=== PATIENT | female | born 1955 | race Caucasian/White ===

== ENCOUNTER → 2016-06-30 | Outpatient (CLI) | payer BC ==
--- NOTE | 2016-06-30 11:18 | RAD ---
PROCEDURE MRI cervical spine without contrast. HISTORY Neck pain. Pain after lifting a patient 4 months ago. History of cervical fusion. TECHNIQUE Sagittal T1, sagittal T2, sagittal STIR, axial T2, and axial T2 gradient sequences are provided. COMPARISON December 09, 2009. FINDINGS There is 2 millimeters of anterolisthesis at C2-C3 and C3-C4. There is 2-3 millimeters of retrolisthesis at C4-C5 and C5-C6. C6 and C7 are fused resulting in hardware artifact. There is no worrisome marrow lesion. There is no marrow edema. There is no cord signal abnormality. Cervicomedullary junction is within normal limits. Degenerative findings by individual level are as follows: C2-C3: Minimal uncinate process spurring is noted and there is moderate left and minimal right foraminal narrowing. There is moderate left foraminal narrowing. C3-C4: Facet hypertrophy is moderate on the left. There is moderate left foraminal narrowing. C4-C5: Disc osteophyte complex and uncinate process spurring are noted. Midline AP diameter of the thecal sac is narrowed to 8-9 millimeters. There is slight cord flattening. There is mild to moderate left and mild right foraminal narrowing. C5-C6: There is a disc osteophyte complex and uncinate process spurring. There is narrowing of the interspace. There is buckling of ligamentum flavum. Midline AP diameter of the thecal sac is narrowed to 7 millimeters. There is mild cord flattening but no cord hyperintensity. There is at least mild bilateral foraminal narrowing. C6-C7: There is hardware artifact at this level. There is no definite canal or foraminal compromise. C7-T1: There is uncinate process spurring and facet hypertrophy noted with high-grade left and mild right foraminal narrowing. Degenerative findings have increased from prior study, most notably at C5-C6. IMPRESSION 1. Degenerative changes in the cervical spine, increased from 2010 with canal stenosis most notable at C5-C6. Foraminal narrowing is greatest on the left at C7-T1. 2. Prior anterior fusion of C6 and C7. Electronically signed by: Quinn Gamez MD (Jun 30, 2016 11:16:58)
--- NOTE | 2016-06-30 12:20 | RAD ---
PROCEDURE MR of the left shoulder HISTORY Left shoulder pain for 4 months. History of rotator cuff repair. TECHNIQUE Standard noncontrast images are obtained. FINDINGS The acromioclavicular joint is mildly degenerative. Full-thickness tear of the supraspinatus tendon measures about 1 centimeter AP diameter. Retraction to about the level of the superior labrum. The tear is centered at the critical zone. Partial tearing of the remaining supraspinatus and infra spinatus tendons. Partial tearing of the subscapularis tendon. Trace fluid in the subdeltoid bursa. Mild to moderate atrophy of the supraspinatus and infraspinatus muscles with volume loss and fatty infiltration. More severe fatty infiltration at the teres minor muscle. This could indicate chronic denervation such as from quadrilateral space syndrome. No significant glenohumeral joint effusion. No evidence of a labrum tear. Biceps tendon not visualized. No evidence of an acute fracture. No aggressive bone destruction. No acute soft tissue injury. Screw identified at the humeral head compatible with prior surgery. IMPRESSION Small full-thickness retracted tear of the supraspinatus tendon. Partial tearing of the remaining supraspinatus and infraspinatus tendon, and subscapularis tendon. Electronically signed by: Jay Bowling MD (Jun 30, 2016 12:19:31)
== END | disposition home or self-care (01) ==
LOC: MRI 08:13
PROVIDERS: ATTEND Internal Medicine Cardiovascular Disease
DX: M54.2 Cervicalgia (principal); M25.512 Pain in left shoulder
CPT/HCPCS: 72141; 73221

== ENCOUNTER → 2016-08-09 | Outpatient (CLI) | payer OTHER ==
[~2016-08-09] MED LIST: ATOR10TA PO; ESTR0.3T PO; EZET10TA3 PO; IOHEXOL 180 MG/ML 10 ML VIAL. ONE; MULT-208 PO; OMEG300C PO; methylPREDNISolone ACETATE 40 MG/ML VIAL. ONE; methylPREDNISolone ACETATE 80 MG/ML VIAL. ONE
--- NOTE | 2016-08-10 04:31 | CONS ---
DATE OF CONSULTATION: 08/09/2016 CHIEF COMPLAINT: Neck and left upper extremity pain. 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 The patient rates the pain as a 6-7 on a scale 10 currently, it can be as high as 10 at night and after a long day. The patient reports it is radiating with constant aching pain, sharp and shooting, but worse with leaning forward with her neck. Pins and needles and electric sensation as well as numbness in the left hand has noted. The patient did have an MRI scan of the cervical spine showing degenerative changes with canal stenosis most noted on the C5-C6 and foraminal narrowing, greatest on the left at C7-T1 with a prior anterior fusion at C6-C7 and high-grade left and mild right foraminal narrowing at C7-T1. The patient reports it wakes her from sleep at least 3-4 times at night, does not affect her bowel or bladder control or her ability to walk, but it is becoming difficult with daily activities, especially when just getting dressed using her left arm raising above her head as it spreading on ____ and is becoming more noticeable with driving and lifting items or working daily activities. The patient rates her disability rate from 0-10, 10 being the worst, 1 with family and home responsibilities and self-care, 4 with occupation and 2 with life support activities. The patient has been taking [id number] ibuprofen as well as Tylenol without significant decrease in the pain. The patient reports no loss of motor function, but significant fatigability with left upper extremity when the pain is more noticeable. PAST MEDICAL HISTORY: Significant for previous seasonal allergies. PREVIOUS SURGERY: Include hysterectomy in 1995, C6-C7 anterior fusion in 2006, left rotator cuff repair in 2010, and right rotator cuff repair in 2012. CURRENT MEDICATIONS: Include Premarin, Lipitor, multivitamins, Cedia and fish oil. ALLERGIES: INCLUDE PENICILLIN, IODINE, DARVON, CRESTOR, AND LORTAB, ALL OF WHICH CAUSE A RASH. FAMILY HISTORY: Significant for coronary artery disease. SOCIAL HISTORY: The patient does not smoke, drinks about 2-3 alcoholic drinks a year on average, is single, lives locally and works as a registered nurse. REVIEW OF SYSTEMS: The patient's review of systems is positive for those items mentioned in history of present illness. All systems were reviewed and otherwise negative. It is complete, full and well documented on the patient's chart. PHYSICAL EXAMINATION: VITAL SIGNS: Today, blood pressure is 128/81, pulse 59, respirations 18, temperature 97.8 degrees Fahrenheit, height is 5 feet 5 inches, and weight 167 pounds. GENERAL: The patient is awake, alert, oriented, appropriate, very pleasant demeanor. HEENT: Head shows normocephalic and atraumatic. Extraocular movements are intact and symmetrical. Oral cavity shows mucous membranes are moist and pink. Dentition is intact. NECK: Shows anterior throat supple without palpable lymphadenopathy noted. Swallow reflex is symmetrical. Previously well-healed surgical scar is noted on the right of the anterior throat. BACK: Posterior cervical musculature shows some moderate tenderness, but is symmetrical with the appearance and on inspection, tenderness with palpation in the middle and lower distribution to paraspinous musculature, more on the left than the right, but symmetrical in appearance. No atrophy or hypertrophy. No trigger points or radiation of pain ____ into the superior medial and lateral trapezius on the left side, is diffusely tender, but without trigger points, right side is nontender. Remainder of patient's back shows normal appearing thoracic kyphosis and lumbar lordotic curvature. CHEST: Shows normal on inspection. Breath sounds are clear to auscultation bilaterally. HEART: Shows S1 and S2 clear. No murmurs are auscultated. ABDOMEN: Soft, nontender, and nondistended. No palpable organomegaly. No rebound or guarding demonstrated. The patient's upper extremities show deep tendon reflexes at 2+ in the biceps and triceps tendons. Motor exam is strong with build technician strength rated at 5/5 as is biceps and triceps flexion and are symmetrical. Peripheral pulses are 2+ in radial distribution. No peripheral edema is noted. No clubbing, no cyanosis. Upper extremities are warm and dry to touch, equal in color and appearance. Shoulder shrug is strong and intact with some minor pain reported in the left shoulder with resistance, but no loss of strength on resistance. This is true with abduction of the shoulder to 90 degrees with resistance as well. IMPRESSION: 1. This is a 60-year-old female with approximate 5-month history of increasing pain in the base of the neck, left upper extremity after injury at work. 2. MRI scan as noted. PLAN: Options were discussed with the patient including conservative medical management, physical therapy, and interventional techniques. She would like to pursue interventional techniques. We discussed a cervical epidural steroid injection using description as well as anatomical models to describe the procedure. Risks were then discussed including, but not limited to bleeding, infection, possibility of epidural hematoma, subsequent neurologic compromise, dural puncture, headaches, spinal cord and/or nerve damage, side effects of steroid medication and poor results regarding pain control. The patient understands and wishes to proceed. The patient will return to clinic in approximately 2 weeks for followup, was counseled on return appointment, activity level and side effects to be aware of. DIAGNOSIS: Cervical radiculopathy with cervical degenerative disk disease. PROCEDURE: Cervical epidural steroid injection in translaminar approach at the C7-T1 level using the fluoroscopic guidance under sterile prep and drape using local anesthetic. MEDICATIONS INJECTED: Depo-Medrol 120 mg plus 5 mL with preservative-free normal saline. CONDITION: Stable at discharge. The patient tolerated the procedure well, had no complications. DAISY OLIVAS MD DR: JOCY/mercedes JOB#: [id number] / [id number]
== END | disposition home or self-care (01) ==
LOC: PNCL 09:04
PROVIDERS: ATTEND Anesthesiology
DX: M50.13 Cervical disc disorder with radiculopathy, cervicothoracic region (principal); Z72.89 Other problems related to lifestyle
CPT/HCPCS: 62321; J1030; J1040

== ENCOUNTER → 2016-08-23 | Outpatient (CLI) | payer OTHER ==
--- NOTE | 2016-08-24 00:22 | PAIN ---
DATE OF SERVICE: 08/23/2016 DIAGNOSES: Cervical radiculopathy with cervical degenerative disk disease. HISTORY OF PRESENT ILLNESS: The patient is a 61-year-old female, who returns for followup status post cervical epidural steroid injection x 1 on 08/09/2016. The patient reports she did very well with about 25% improvement overall, but pain is still returning now over the past week or so to the base of the neck and left shoulder and upper extremity as it had been previously. The patient reports some hand and arm numbness and tingling as well, worse when she is at work. 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 The patient reports it as a 5 to 6 on a scale of 10 today. Reports no new motor or sensory deficits, but still significant pain in the neck and left upper extremity. The patient reports no new motor or sensory deficits. No new changes. PHYSICAL EXAMINATION: VITAL SIGNS: The patient's blood pressure is 114/75, pulse 67, respirations 18, temperature 97.9 degrees Fahrenheit. Weight is 164 pounds. GENERAL: The patient is awake, alert, oriented, appropriate. She has a very pleasant demeanor. HEENT: Exam shows normocephalic, atraumatic. Extraocular movements are intact and symmetrical. Oral cavity shows mucous membranes moist and pink. Dentition is intact. NECK: Shows anterior throat supple without palpable lymphadenopathy noted. Swallow reflex is symmetrical. CHEST: Shows normal on inspection. Breath sounds are clear to auscultation bilaterally. HEART: Shows S1 and S2 clear. ABDOMEN: Soft, nontender, nondistended. No palpable organomegaly. No rebound or guarding demonstrated. BACK: Shows spine grossly midline. Cervical paraspinous muscle shows some mild tenderness with palpation, but only in the inferior aspect of the cervical paraspinous muscles and superior medial trapezius. There is slight tenderness with palpation in the left superior and lateral trapezius but not the right, and it appears roughly symmetrical. The patient has good rotational motion of the cervical spine, both laterally as well as extension and flexion without exacerbation of pain. EXTREMITIES: Upper extremities show deep tendon reflexes 2+ in the biceps and triceps tendons. 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 PLAN: Options were discussed with the patient. The patient's old chart was reviewed as was her current medication regimen updated. Current review of systems was updated today as well. We will proceed with a second cervical epidural steroid injection today with fluoroscopic guidance. Risks were again discussed including, but not limited to bleeding, infection, possibility of epidural hematoma and subsequent neurologic compromise, dural puncture, headaches, spinal cord and/or nerve damage, side effects of steroid medication, and poor results regarding pain control. The patient understands and wished to proceed. The patient will return to the clinic in approximately 2 weeks for followup. She was counseled on return appointment, activity level, and side effects to be aware of. DAISY OLIVAS MD DR: JOCY/nts JOB#: [id number] / [id number]
--- NOTE | 2016-08-24 09:38 | PN ---
DATE: 08/23/2016 DIAGNOSES: Cervical radiculopathy, cervical degenerative disk disease. PROCEDURE: Cervical epidural steroid injection, translaminar approach at the C6-7 level using C-arm fluoroscopic guidance. DESCRIPTION OF PROCEDURE: Under sterile prep and drape using local anesthetic, medication injected is 120 mg of Depo-Medrol plus 5 mL of preservative-free normal saline and 2 mL of Isovue for contrast. CONDITION AT DISCHARGE: Stable. The patient tolerated the procedure well, had no complications. DAISY OLIVAS MD DR: JOCY/mercedes JOB#: [id number] / [id number]
== END | disposition home or self-care (01) ==
LOC: PNCL 13:22
PROVIDERS: ATTEND Anesthesiology
DX: M50.123 Cervical disc disorder at C6-C7 level with radiculopathy (principal)
CPT/HCPCS: 62321; J1030; J1040

== ENCOUNTER → 2016-09-07 | Outpatient (CLI) | payer OTHER ==
[~2016-09-07] MED LIST changes: -IOHEXOL 180 MG/ML 10 ML VIAL. ONE
--- NOTE | 2016-09-08 07:22 | PAIN ---
DATE OF SERVICE: 09/07/2016 PROGRESS NOTE FOR PAIN CLINIC DIAGNOSES: Cervical radiculopathy with cervical degenerative disk disease. HISTORY OF PRESENT ILLNESS: The patient is a 61-year-old female who returns for followup status post cervical epidural steroid injection x 2. The patient reports about 25% overall improvement, but still significant pain in the base of the neck, left upper extremity, and shoulder. The patient reports that it takes longer for the numbness and discomfort, in the shoulder and arm when she is reaching down picking things up or using her upper extremities over her head along the day before the injections, but still significant pain and numbness in this region. The patient reports the pain currently is 0 on a scale of 10, but can be as high as a 5 or 6 when she using her left upper extremity more actively more ____. The patient reports no new motor or sensory deficits or other complaints. PHYSICAL EXAMINATION: VITAL SIGNS: The patient's blood pressure is 116/74, pulse 69, respirations 20, temperature 98.1 degrees Fahrenheit. Weight is 167 pounds. GENERAL: The patient is awake, alert, oriented, appropriate, very pleasant demeanor. HEENT: Head shows normocephalic, atraumatic. Extraocular movements are intact and symmetrical. Oral cavity, mucous membranes are moist and pink. Dentition is intact. NECK: Shows anterior throat supple without palpable lymphadenopathy noted. Swallow reflex is symmetrical. CHEST: Shows normal on inspection. Breath sounds are clear to auscultation bilaterally. HEART: Shows S1 and S2, clear. No murmurs auscultated. ABDOMEN: Soft, nontender, nondistended. No palpable organomegaly, no rebound or guarding demonstrated. BACK: The patient's back shows spine grossly in the midline. Cervical paraspinous muscle shows some moderate tenderness with palpation in the inferior and middle aspect of cervical paraspinous muscles, also superior medial and lateral trapezius, more on the left than the right, but again is symmetrical with the right side. The patient shows no radiation of pain, no trigger points, and no asymmetry. The patient shows good rotational motion of cervical spine, both laterally as well as extension and flexion without significant pain reported. Upper extremities show deep tendon reflexes 2+ in the biceps and triceps tendons. Motor exam is strong with 5/5 stock analyst strength, biceps and triceps flexion and equal. Peripheral pulses are 2+ in radial distribution. Options were discussed with the patient. The patient's old chart was reviewed as her current medication regimen updated. Current review of systems updated today as well. We will proceed with a third cervical epidural steroid injection today with fluoroscopic guidance. Risks were again discussed including, but not limited to bleeding, infection, possibility of epidural hematoma, subsequent neurologic compromise, dural puncture, headaches, spinal cord and/or nerve damage, side effects of steroid medication and poor results regarding pain control. The patient understands and wishes to proceed. The patient will return to clinic in approximately 2 weeks for followup, was counseled on return appointment to level and side effects to be aware of. DIAGNOSES: Cervical radiculopathy with cervical degenerative disk disease. PROCEDURE: Cervical epidural steroid injection in translaminar approach at C6-C7 level using C-arm fluoroscopic guidance under sterile prep and drape using local anesthetic. MEDICATIONS INJECTED: 120 mg of Depo-Medrol plus 5 mL of preservative-free normal saline and that no Isovue. She is allergic to this. CONDITION AT DISCHARGE: Stable. The patient tolerated procedure well, had no complications. DAISY OLIVAS MD DR: JOCY/mercedes JOB#: [id number] / [id number]
== END | disposition home or self-care (01) ==
LOC: PNCL 13:31
PROVIDERS: ATTEND Anesthesiology
DX: M50.123 Cervical disc disorder at C6-C7 level with radiculopathy (principal)
CPT/HCPCS: 62321; J1030; J1040

== ENCOUNTER → 2016-12-26 | Outpatient (CLI) | payer OTHER ==
[~2016-12-26] MED LIST changes: +EZET10TA18 PO; -EZET10TA3 PO; -methylPREDNISolone ACETATE 40 MG/ML VIAL. ONE; -methylPREDNISolone ACETATE 80 MG/ML VIAL. ONE
--- NOTE | 2016-12-27 10:00 | RAD ---
DATE: 12/26/2016 EXAM: DIGITAL SCREEN BILAT W/CAD HISTORY: Routine screening COMPARISON: 12/24/2015 This study was interpreted with the benefit of Computerized Aided Detection (CAD). The breast parenchyma shows scattered fibroglandular densities. Breast parenchyma level B. FINDINGS: No new or enlarging breast densities are seen. Benign type calcifications are present. No suspicious microcalcifications have developed. Benign-appearing lymph node type densities are present in both axillary regions. IMPRESSION: Stable mammograms without evidence of malignancy. BI-RADS CATEGORY: 2 BENIGN FINDING(S) RECOMMENDED FOLLOW-UP: 12M 12 MONTH FOLLOW-UP PQRS compliance statement: Patient information was entered into a reminder system with a target due date for the next mammogram. Mammography is a sensitive method for finding small breast cancers, but it does not detect them all and is not a substitute for careful clinical examination. A negative mammogram does not negate a clinically suspicious finding and should not result in delay in biopsying a clinically suspicious abnormality. "Our facility is accredited by the [employer] Mammography [employer]."
== END | disposition home or self-care (01) ==
LOC: MAMMO 14:02
PROVIDERS: ATTEND Obstetrics & Gynecology
DX: Z12.31 Encounter for screening mammogram for malignant neoplasm of breast (principal)
CPT/HCPCS: G0202; 77067

== ENCOUNTER 2017-06-12 07:11 | Day surgery (SDC) | payer OTHER ==
[2017-06-12] MEDS ORDERED: LIDOCAINE 1% PF 30 ML VIAL. (07:28)
[2017-06-12] MEDS ORDERED: BUPIVACAINE MPF 0.5% 30 ML VIAL. (07:29)
[2017-06-12 07:38] LABS: ADD MAN DIFF? NO
[2017-06-12 07:45] LABS: BASO # 0.1 x10^3/uL (0.0-0.2); BASO % 1 % (0-3); EOS # 0.1 x10^3/uL (0.0-0.7); EOS % 2 % (0-3); HEMATOCRIT 39.1 % (36.0-47.0); HEMOGLOBIN 13.1 g/dL (12.0-15.5); LYMPH # 2.4 x10^3/uL (1.0-4.8); LYMPH % 41 % (24-48); MEAN CORPUSCULAR HEMOGLOBIN 31 pg (25-35); MEAN CORPUSCULAR HGB CONC 34 g/dL (31-37); MEAN CORPUSCULAR VOLUME 91 fL (79-100); MONO # 0.5 x10^3/uL (0.0-1.1); MONO % 8 % (0-9); NEUT # 2.8 x10^3uL (1.8-7.7); NEUT % 48 % (31-73); PLATELET COUNT 337 x10^3/uL (140-400); RED BLOOD COUNT 4.29 x10^6/uL (3.50-5.40); RED CELL DISTRIBUTION WIDTH 12.6 % (11.5-14.5); WHITE BLOOD COUNT 5.9 x10^3/uL (4.0-11.0)
[2017-06-12 08:02] LABS: ANION GAP 12 (6-14); BLOOD UREA NITROGEN 14 mg/dL (7-20); BUN/CREATININE RATIO 14 (6-20); CALCIUM 9.3 mg/dL (8.5-10.1); CARBON DIOXIDE 26 mmol/L (21-32); CHLORIDE 103 mmol/L (98-107); GFR 56.4; GLUCOSE 95 mg/dL (70-99); POTASSIUM 3.7 mmol/L (3.5-5.1); SODIUM 141 mmol/L (136-145)
[2017-06-12] MEDS: IV RINGERS,LACTATED 1000ML 1,000 ML IV (08:05)
[2017-06-12 08:13] LABS: ALBUMIN 3.5 g/dL (3.4-5.0); ALBUMIN/GLOBULIN RATIO 0.8 (1.0-1.7); ALK PHOS 73 U/L (46-116); ALT (SGPT) 19 U/L (14-59); AST (SGOT) 15 U/L (15-37); TOTAL BILIRUBIN 0.3 mg/dL (0.2-1.0); TOTAL PROTEIN 7.7 g/dL (6.4-8.2)
[2017-06-12] MEDS ORDERED: ONDANSETRON PF 4 MG/2 ML VIAL. ×2 (08:27→09:25)
[2017-06-12] MEDS ORDERED: DEXAMETHASONE SOD PHOS 20 MG/5 ML VIAL. ×2 (08:27→09:25)
[2017-06-12] MEDS ORDERED: PROPOFOL 20 ML IV ×2 (08:27→09:25)
[2017-06-12] MEDS ORDERED: fentaNYL PF VIAL 100 MCG/2 ML VIAL ×2 (08:28→10:44)
[2017-06-12] MEDS: VANCOMYCIN 1 GM in IV DEXTROSE 5% 250 ML IV (08:46)
[2017-06-12] MEDS ORDERED: MIDAZOLAM HCL/PF 2 MG/2 ML VIAL. (08:49)
[2017-06-12] MEDS: BACITRACIN 50,000 UNIT in IV NORMAL SALINE 1000ML BAG 1,000 ML IRR (09:21)
[2017-06-12] MEDS: BUPIVAC MPF-EPI 0.75%-1:200000 30 ML VIAL. IJ (09:21)
[2017-06-12] MEDS ORDERED: LIDOCAINE 2% PF Vial for OR 5 ML VIAL. (09:25)
[2017-06-12] MEDS ORDERED: SEVOFLURANE 61 TO 120 MINUTES. IH (10:07)
[2017-06-12] MEDS ORDERED: oxyCODONE/APAP 5/325 1 TAB TABLET (10:38)
[2017-06-12] MEDS: oxyCODONE/APAP 5/325 1 TAB TABLET PO (10:42)
[2017-06-12] MEDS ORDERED: IV RINGERS,LACTATED 1000ML 1,000 ML IV (10:47)
[2017-06-12] MEDS: fentaNYL PF VIAL 100 MCG/2 ML VIAL IV ×2 (10:50→11:02)
[2017-06-12] MEDS ORDERED: fentaNYL PF VIAL 100 MCG/2 ML VIAL IV (11:00)
[2017-06-12] MEDS ORDERED: ONDANSETRON PF 4 MG/2 ML VIAL. IV (11:00)
[2017-06-12] MEDS ORDERED: PROCHLORPERAZINE 10 MG/2 ML VIAL. IV (11:00)
[2017-06-12] MEDS ORDERED: LIDOCAINE 1% PF 2 ML VIAL. ID (11:00)
== END 2017-06-12 11:38 | disposition home or self-care (01) ==
LOC: SURG 07:11
DX: G56.22 Lesion of ulnar nerve, left upper limb (principal); G54.8 Other nerve root and plexus disorders; Z86.69 Personal history of other diseases of the nervous system and sense organs; E78.00 Pure hypercholesterolemia, unspecified; Z90.710 Acquired absence of both cervix and uterus; Z72.89 Other problems related to lifestyle; Z88.8 Allergy status to other drugs, medicaments and biological substances; Z91.041 Radiographic dye allergy status; Z88.0 Allergy status to penicillin; Z91.013 Allergy to seafood
CPT/HCPCS: 36415; 80053; 85025; J0690; J1100; J2250; J2405; J2704; J3010; J3370; J3490; J7030; J7120

== ENCOUNTER → 2018-01-19 | Outpatient (CLI) | payer OTHER ==
[2017-06-12 11:30] VITALS: BP 124/68
[~2018-01-19] MED LIST changes: +ESTR0.45 PO; +OXYC-323 PO; +UBID200C7 PO
--- NOTE | 2018-01-23 08:49 | RAD ---
DATE: 01/19/2018 11:00 AM EXAM: MAMMO OK SCREENING BILATERAL HISTORY: routine screening evaluation. COMPARISON: 12/26/2016, 12/24/2015, 11/04/2014, 10/31/2014 Bilateral CC and MLO views of the breasts were performed. Bilateral breast tomosynthesis was performed in CC and MLO projections. This study was interpreted with the benefit of Computerized Aided Detection (CAD ). Breast Density: The breast parenchyma shows scattered fibroglandular densities. Breast parenchyma level B. FINDINGS: Asymmetry in the superior right breast has been stable to at least 10/31/2014. No suspicious masses, microcalcifications or architectural distortion is present to suggest malignancy in either breast. The visualized axillae are unremarkable. IMPRESSION: No mammographic evidence of malignancy. BI-RADS CATEGORY: 2 BENIGN FINDING(S) RECOMMENDED FOLLOW-UP: 12M 12 MONTH FOLLOW-UP Annual screening mammography is recommended, unless clinically indicated sooner based on symptoms or change in physical exam. PQRS compliance statement: Patient information was entered into a reminder system with a target due date for the next mammogram. Mammography is a sensitive method for finding small breast cancers, but it does not detect them all and is not a substitute for careful clinical examination. A negative mammogram does not negate a clinically suspicious finding and should not result in delay in biopsying a clinically suspicious abnormality. "Our facility is accredited by the [employer] Mammography [employer]." MTDD
== END | disposition home or self-care (01) ==
LOC: MAMMO 09:00
PROVIDERS: ATTEND Obstetrics & Gynecology
DX: Z12.31 Encounter for screening mammogram for malignant neoplasm of breast (principal); E78.5 Hyperlipidemia, unspecified; E78.00 Pure hypercholesterolemia, unspecified; Z86.69 Personal history of other diseases of the nervous system and sense organs; Z90.710 Acquired absence of both cervix and uterus; Z88.0 Allergy status to penicillin; Z88.8 Allergy status to other drugs, medicaments and biological substances
CPT/HCPCS: 77063; 77067

== ENCOUNTER → 2019-01-31 | Outpatient (CLI) | payer OTHER ==
[2017-06-12 11:30] VITALS: BP 124/68
[~2019-01-31] MED LIST changes: -OXYC-323 PO; +OXYC1TAB15 PO
--- NOTE | 2019-02-01 15:56 | RAD ---
BILATERAL SCREENING MAMMOGRAM, 3-D History: Routine screening. Comparison: 12/24/2015 and 01/19/2018 mammographic exams. Technique: MLO and CC digital tomosynthesis (3D) images obtained. Radiologist reviewed these images on dedicated workstation. Findings: Breast Tissue Density B : There are scattered areas of fibroglandular density. There are no dominant masses, suspicious microcalcifications, or architectural distortion. IMPRESSION: No mammographic evidence of malignancy. Recommend routine screening. BI-RADS category 1: Negative. The images were reviewed with computer-aided detection. Patient information is entered into reminder system with a target due date for the next screening mammogram. Mammography is the most sensitive method for finding small breast cancers, but it does not detect them all and is not a substitute for careful clinical examination. A negative mammogram does not negate a clinically suspicious finding and should not result in delay in biopsying a clinically suspicious abnormality. "Our facility is accredited by the [employer] Mammography Program." Electronically signed by: Alejandro Alberts MD (02/01/2019 3:53 PM) [facility]
== END | disposition home or self-care (01) ==
LOC: MAMMO 13:09
PROVIDERS: ATTEND Obstetrics & Gynecology
DX: Z12.31 Encounter for screening mammogram for malignant neoplasm of breast (principal)
CPT/HCPCS: 77063; 77067

== ENCOUNTER 2019-12-20 18:10 | Emergency (ER) | payer BC, OTHER ==
[~2019-12-20] VITALS: Ht 165.1 cm; Wt 77.2 kg
[~2019-12-20 18:10] MED LIST changes: -EZET10TA18 PO; +EZET10TA20 PO
--- NOTE | 2019-12-20 19:34 | PHYS DOC ---
Past Medical History Past Medical History: No Pertinent History Past Surgical History: Hysterectomy Additional Past Surgical Histo: B ROTATOR CUFF, C6-C7 INFUSION, L ULNAR DECOMP RESSION Smoking Status: Never Smoker Alcohol Use: None General Adult EDM: Chief Complaint: UPPER EXTREMITY INJURY HPI: HPI: Patient is a 64 year old female who presents with was mowing the lawn when she says that the place got tangled in a strap and when she went to pull to strap it hit her left arm repeatedly. Patient has left dorsal forearm bruising and swelling 2+ with a small half a centimeter superficial cut to the dorsal hand, dorsal left middle finger in dorsal ring finger x2. Bleeding is controlled and all edges are approximated. All cuts are superficial. Patient will receive a tetanus shot. Patient's ring that she had on her middle left finger had to be cut off due to swelling. Cap refill less than 3 seconds. Patient rates her pain 8 out of [address] She was given ibuprofen. Review of Systems: Review of Systems: Constitutional: Denies fever or chills. [] Eyes: Denies change in visual acuity. [] HENT: Denies nasal congestion or sore throat. [] Respiratory: Denies cough or shortness of breath. [] Cardiovascular: Denies chest pain or edema. [] GI: Denies abdominal pain, nausea, vomiting, bloody stools or diarrhea. [] : Denies dysuria. [] Musculoskeletal: Denies back pain. Left middle finger, ring finger, dorsal lateral medial wrist, forearm joint pain. [] Integument: Denies rash. Half a centimeter superficial cut on dorsal ring finger him middle finger. The ring finger has 2 superficial cuts. Bleeding controlled. [] Neurologic: Denies headache, focal weakness or sensory changes. [] Endocrine: Denies polyuria or polydipsia. [] Lymphatic: Denies swollen glands. [] Psychiatric: Denies depression or anxiety. [] Heart Score: Risk Factors: Risk Factors: DM, Current or recent (<one month) smoker, HTN, HLP, family history of CAD, obesity. Risk Scores: Score 0 - 3: 2.5% MACE over next 6 weeks - Discharge Home Score 4 - 6: 20.3% MACE over next 6 weeks - Admit for Clinical Observation Score 7 - 10: 72.7% MACE over next 6 weeks - Early Invasive Strategies Current Medications: Current Medications Medications (Trade) Dose Ordered Sig/Andrae Start Time Stop Time Status Last Admin Dose Admin Diphtheria/ Tetanus/Acell Pertussis (ADACEL TDap SYRINGE) 0.5 ml ONCE ONCE 12/20/19 19:45 12/20/19 19:46 Ibuprofen (Motrin) 600 mg 1X ONCE 12/20/19 19:45 12/20/19 19:46 12/20/19 19:26 600 MG Allergies: Allergies: Allergies Coded Allergies Type Severity Reaction Last Updated Verified Iodine and Iodide Containing Produc Allergy Intermediate hives, and rash 06/12/17 Yes Penicillins Allergy Intermediate rash 06/12/17 Yes hydrocodone Allergy Intermediate hives 06/12/17 Yes povidone-iodine Allergy Intermediate Rash 06/12/17 Yes propoxyphene Allergy Intermediate hives 06/12/17 Yes rosuvastatin Allergy Intermediate hives 06/12/17 Yes shellfish derived Allergy Intermediate Rash 06/08/17 Yes Physical Exam: PE: Constitutional: Well developed, well nourished, no acute distress, non-toxic appearance. [] HENT: Normocephalic, atraumatic, bilateral external ears normal, oropharynx moist, no oral exudates, nose normal. [] Eyes: PERRLA, EOMI, conjunctiva normal, no discharge. [] Neck: Normal range of motion, no tenderness, supple, no stridor. [] Cardiovascular:Heart rate regular rhythm, no murmur [] Lungs & Thorax: Bilateral breath sounds clear to auscultation [] Abdomen: Bowel sounds normal, soft, no tenderness, no masses, no pulsatile masses. [] Skin: Warm, dry, no erythema, no rash. Half a centimeter superficial cut on dorsal ring finger and 2 superficial cuts on the fourth middle finger. [] Back: No tenderness, no CVA tenderness. [] Extremities: Left dorsal forearm, left third and fourth finger, wrist tende rness, no cyanosis, no clubbing, ROM intact, 2+ edema. [] Neurologic: Alert and oriented X 3, normal motor function, normal sensory function, no focal deficits noted. [] Psychologic: Affect normal, judgement normal, mood normal. [] Current Patient Data: Vital Signs: Vital Signs Date Time Temp Pulse Resp B/P (MAP) Pulse Ox O2 Delivery O2 Flow Rate FiO2 12/20/19 19:07 98.8 87 16 137/81 (99) 100 Room Air 98.8 EKG: EKG: [] Radiology/Procedures: Radiology/Procedures: [] Impression: [facility] [address] [place] [address] IMAGING REPORT Signed PATIENT: ROLY COLLAZO LACCOUNT: [id number] : 1955 LOCATION: ER AGE: 64 SEX: F EXAM STATUS: PRE ER ORD. PHYSICIAN: ANABELL HECTOR APRN REASON: pain, mowing accident PROCEDURE: FOREARM LEFT INDICATION: Reason: pain, mowing accident / Spl. Instructions: / History: COMPARISON: None. IMPRESSION: Left hand: 3 views obtained. There is some degenerative change is identified including at the interphalangeal joints. No definite acute fracture or dislocation. Left wrist: 3 views obtained. Linear band of sclerosis at the scaphoid on one of the images but this is not seen on the other images. Could be secondary to the patient's baseline trabecular pattern given that a definite cortical step-off is not seen to suggest nondisplaced fracture. Left forearm: 2 views obtained. There is edema within the soft tissues. No definite radius or ulna fracture. Electronically signed by: Arlen Alberto MD (12/20/2019 8:01 PM) [id number] DICTATED and SIGNED BY: ARLEN ALBERTO MD DATE: 12/20/192000 Course & Med Decision Making: Course & Med Decision Making Pertinent Labs and Imaging studies reviewed. (See chart for details) Patient is given a tetanus shot. No nailbed damage. Refill less than 3 seconds. Radial pulse strong present. See HPI. Fingers and forearm arm swelling 2+. Does have tenderness over dorsal lateral medial wrist. Patient has tenderness over the left middle and ring finger. Skin is pink warm and dry. No deformity of any joints. No laxity of any joints. Full range of motion no tenderness over the elbow. Tenderness over the dorsal and lateral aspect of the left forearm over the bruising area. [] Dragon Disclaimer: Dragon Disclaimer: This electronic medical record was generated, in whole or in part, using a voice recognition dictation system. Departure Departure Impression: Primary Impression: Superficial laceration Additional Impressions: Forearm contusion Qualified Codes: S50.12XA - Contusion of left forearm, initial encounter Wrist contusion Qualified Codes: S60.212A - Contusion of left wrist, initial encounter Finger contusion Qualified Codes: S60.032A - Contusion of left middle finger without damage to nail, initial encounter Disposition: HOME, SELF-CARE Condition: STABLE Referrals: NO PCP (PCP) Patient Instructions: Contusion, [id number], Laceration Care, Adult Additional Instructions: Follow-up with primary care provider if needed. Take medications as prescribed and with food. Keep superficial cuts clean and covered. Watch for signs of infection. Elevate the arm and ice it to help with pain and swelling. Scripts Ibuprofen (IBUPROFEN) 600 Mg Tablet 600 MG PO PRN Q6HRS PRN for INFLAMMATION, #20 TAB Prov: ANABELL HECTOR APRN 12/20/19 Justicifation of Admission Dx: Justifications for Admission: Justification of Admission Dx: N/A ANABELL HECTOR APRN Dec 20, 2019 19:34
[2019-12-20] MEDS ORDERED: IBUPROFEN 200 MG TABLET. PO ONE (19:45)
[2019-12-20] MEDS ORDERED: DIPH,PERTUSS(ACELL),TET VAC/PF 0.5 ML SYRINGE. VAX IM ONE (19:45)
--- NOTE | 2019-12-20 20:03 | RAD ---
INDICATION: Reason: pain, mowing accident / Spl. Instructions: / History: COMPARISON: None. IMPRESSION: Left hand: 3 views obtained. There is some degenerative change is identified including at the interphalangeal joints. No definite acute fracture or dislocation. Left wrist: 3 views obtained. Linear band of sclerosis at the scaphoid on one of the images but this is not seen on the other images. Could be secondary to the patient's baseline trabecular pattern given that a definite cortical step-off is not seen to suggest nondisplaced fracture. Left forearm: 2 views obtained. There is edema within the soft tissues. No definite radius or ulna fracture. Electronically signed by: Gustavo Tolliver MD (12/20/2019 8:01 PM) [id number]
[2019-12-20] MEDS ORDERED: IBUP-1007 PO (20:12)
[2019-12-20 20:29] VITALS: BP 134/79
== END 2019-12-20 20:31 | disposition home or self-care (01) ==
LOC: ER 18:10
DX: S61.215A Laceration without foreign body of left ring finger without damage to nail, initial encounter (principal); S50.12XA Contusion of left forearm, initial encounter; S60.212A Contusion of left wrist, initial encounter; S60.032A Contusion of left middle finger without damage to nail, initial encounter; R60.0 Localized edema; Z88.0 Allergy status to penicillin; Z88.5 Allergy status to narcotic agent; Z91.013 Allergy to seafood; Z91.041 Radiographic dye allergy status; Z88.8 Allergy status to other drugs, medicaments and biological substances; W31.89XA Contact with other specified machinery, initial encounter; Y93.H2 Activity, gardening and landscaping; Y92.89 Other specified places as the place of occurrence of the external cause; Y99.8 Other external cause status
CPT/HCPCS: 73090; 73110; 73130; 90471; 90715; 99284

== ENCOUNTER → 2021-01-25 | Outpatient (CLI) | payer BC ==
[~2021-01-25] MED LIST changes: +IBUP-1007 PO
--- NOTE | 2021-01-25 09:27 | RAD ---
EXAM: Bilateral digital screening mammogram with tomosynthesis. HISTORY: 65-year-old female presents for screening mammography. TECHNIQUE: Full-field digital craniocaudal and mediolateral oblique 2D and 3D tomosynthesis images of both breasts are obtained for evaluation. Computer aided detection was applied. COMPARISON: 01/31/2019 BREAST PARENCHYMAL DENSITY: Level B - Scattered fibroglandular densities. FINDINGS: There is no new suspicious mass, microcalcification or region of architectural distortion. There are stable areas of nodularity and asymmetry within both breasts. IMPRESSION: BI-RADS Category 2: Benign finding(s). RECOMMENDATION: Annual mammography is recommended. If your mammogram demonstrates that you have dense breast tissue, which could hide abnormalities, and if you have other risk factors for breast cancer that have been identified, you might benefit from s upplemental screening tests that may be suggested by your ordering physician. Dense breast tissue, i n and of itself, is a relatively common condition. This information is not provided to cause undue c oncern, but rather to raise your awareness and to promote discussion with your physician regarding th e presence of other risk factors, in addition to dense breast tissue. A report of your mammography re sults will be sent to you and your physician. You should contact your physician if you have any ques tions or concerns regarding this report. Mammography is a sensitive method for finding small breast cancers, but it does not detect them all a nd is not a substitute for careful clinical examination. A negative mammogram does not negate a clin ically suspicious finding and should not result in delay in biopsying a clinically suspicious abnorma lity. PQRS compliance statement - Patient information was entered into a reminder system with a target due date for the next mammogram. "Our facility is accredited by the [employer] Mammography [employer]." Electronically signed by: Norma Herman MD (01/25/2021 9:25 AM) [id number]
== END ==
LOC: MAMMO 09:04
PROVIDERS: ATTEND Obstetrics & Gynecology
DX: Z12.31 Encounter for screening mammogram for malignant neoplasm of breast (principal)
CPT/HCPCS: 77063; 77067

== ENCOUNTER 2021-05-19 10:12 | Emergency (ER) | payer BC ==
[~2021-05-19] VITALS: Ht 165.1 cm; Wt 72.0 kg
[2021-05-19] MEDS ORDERED: IV NORMAL SALINE 1000ML BAG 1,000 ML IV SCH (10:30)
[2021-05-19] MEDS ORDERED: ONDANSETRON PF 4 MG/2 ML VIAL. IVP ONE (10:30)
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
[2021-05-19 10:57] LABS: BASO % 0 % (0-3); EOS % 0 % (0-3); HEMATOCRIT 36.2 % (36.0-47.0); HEMOGLOBIN 12.6 g/dL (12.0-15.5); LYMPH # 0.9 x10^3/uL (1.0-4.8); LYMPH % 12 % (24-48); MEAN CORPUSCULAR HEMOGLOBIN 31 pg (25-35); MEAN CORPUSCULAR HGB CONC 35 g/dL (31-37); MEAN CORPUSCULAR VOLUME 88 fL (79-100); MONO # 0.7 x10^3/uL (0.0-1.1); MONO % 9 % (0-9); NEUT # 6.1 x10^3/uL (1.8-7.7); NEUT % 80 % (31-73); PLATELET COUNT 271 x10^3/uL (140-400); RED BLOOD COUNT 4.11 x10^6/uL (3.50-5.40); RED CELL DISTRIBUTION WIDTH 13.5 % (11.5-14.5); WHITE BLOOD COUNT 7.7 x10^3/uL (4.0-11.0)
[2021-05-19 11:08] LABS: CALCIUM 8.6 mg/dL (8.5-10.1); CREATININE 0.9 mg/dL (0.6-1.0); GFR 62.8; POTASSIUM 3.2 mmol/L (3.5-5.1)
[2021-05-19 11:20] LABS: ALBUMIN 2.9 g/dL (3.4-5.0); ALBUMIN/GLOBULIN RATIO 0.5 (1.0-1.7); MAGNESIUM 2.3 mg/dL (1.8-2.4); TOTAL BILIRUBIN 0.6 mg/dL (0.2-1.0); TOTAL PROTEIN 8.2 g/dL (6.4-8.2)
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
[2021-05-19 12:15] LABS: BILIRUBIN,URINE NEGATIVE (NEG); CLARITY,URINE CLEAR; COLOR,URINE YELLOW; NITRITE,URINE NEGATIVE (NEG); PH,URINE 6.5 (<5.0-8.0); PROTEIN,URINE NEGATIVE (NEG-TRACE); UROBILINOGEN,URINE 0.2 mg/dL (0.2 mg/dL)
[2021-05-19 12:31] LABS: BACTERIA,URINE 0 /HPF (0-FEW); RBC,URINE 0 /HPF (0-2); WBC,URINE 0 /HPF (0-4)
[2021-05-19 13:00] VITALS: BP 125/64
[2021-05-19] MEDS ORDERED: POTASSIUM CHLORIDE 20 MEQ TABLET.ER. PO ONE (13:00)
== END 2021-05-19 13:15 | disposition home or self-care (01) ==
LOC: ER 10:12
DX: S32.018A Other fracture of first lumbar vertebra, initial encounter for closed fracture (principal); K57.90 Diverticulosis of intestine, part unspecified, without perforation or abscess without bleeding; Z20.822 Contact with and (suspected) exposure to COVID-19; Z90.710 Acquired absence of both cervix and uterus; K76.0 Fatty (change of) liver, not elsewhere classified; Z88.5 Allergy status to narcotic agent; Z91.041 Radiographic dye allergy status; Z91.013 Allergy to seafood; Z88.8 Allergy status to other drugs, medicaments and biological substances; Z88.0 Allergy status to penicillin; X58.XXXA Exposure to other specified factors, initial encounter; Y93.89 Activity, other specified; Y92.89 Other specified places as the place of occurrence of the external cause; Y99.8 Other external cause status
CPT/HCPCS: 36415; 74176; 80053; 81001; 83690; 83735; 84484; 85025; 87426; 96361; 96374; 99285; J2405; J7030; U0003; U0005

== ENCOUNTER → 2021-07-01 | Outpatient (CLI) | payer BC ==
--- NOTE | 2021-07-01 13:44 | KCIC ---
EXAM: Lumbar spine MRI without contrast. HISTORY: Compression fracture. TECHNIQUE: Multiplanar, multisequence magnetic resonance imaging of the lumbar spine was performed wi thout contrast. COMPARISON: 05/22/2021 FINDINGS: There is a severe anterior wedge compression fracture of L1 with approximately 75 percent l oss of anterior vertebral body height and examining retropulsion of the cortex into the central canal . This is subacute based on the degree of edema within the vertebral body marrow at this level. No ad ditional fracture is seen. There is 6 mm grade 1 anterolisthesis of L4 on L5. There is degenerative endplate remodeling with dis c space narrowing primarily at this level. There is no suspicious osseous lesion. At T12-L1, there is retropulsion of the L1 cortex resulting in mild central canal stenosis. At L1-L2, there is no stenosis. At L2-L3, there is no stenosis. At L3-L4, there is a disc bulge and endplate remodeling. There is mild right greater than left facet arthropathy. There is mild left extraforaminal stenosis. At L4-L5, there is a disc bulge and endplate remodeling. There is severe bilateral facet arthropathy. There is hypertrophy of the ligamentum flavum. There is grade 1 anterolisthesis. There is grade 1 an terolisthesis. There is minimal bilateral foraminal stenosis. There is moderate to severe central can al stenosis. At L5-S1, there is a disc bulge and right paracentral annular tear. There is mild left facet arthropa thy. There is no stenosis. IMPRESSION: 1. Severe compression fracture of L1 with slight retropulsion of the cortex resulting in mild central canal stenosis. This is not significantly changed compared to a CT performed 05/19/2021. The degree of edema favors a subacute etiology. 2. Multilevel degenerative change involving the lumbar spine, primarily at L4-L5. There is associated moderate to severe central canal stenosis at this level. Electronically signed by: Norma Herman MD (07/01/2021 1:42 PM) [id number]
== END ==
LOC: KCIC MRI 12:21
PROVIDERS: ATTEND Family Medicine
DX: S32.010A Wedge compression fracture of first lumbar vertebra, initial encounter for closed fracture (principal); M47.816 Spondylosis without myelopathy or radiculopathy, lumbar region; M51.27 Other intervertebral disc displacement, lumbosacral region; M48.8X7 Other specified spondylopathies, lumbosacral region; M48.061 Spinal stenosis, lumbar region without neurogenic claudication; M51.37 Other intervertebral disc degeneration, lumbosacral region; X58.XXXA Exposure to other specified factors, initial encounter; Y93.89 Activity, other specified; Y92.89 Other specified places as the place of occurrence of the external cause; Y99.8 Other external cause status
CPT/HCPCS: 72148